=== PATIENT | female | born 1960 ===

== ENCOUNTER 2017-04-24 06:28 | Day surgery (SDC) | payer OTHER ==
[2017-04-24] MEDS ORDERED: ePHEDrine 50 mg/ml Inj ONE (07:24)
[2017-04-24] MEDS ORDERED: Succinylcholine 200 mg/10 ml Inj IV ONE (07:24)
[2017-04-24] MEDS ORDERED: Propofol 10 mg/ml Inj (20 ML) ONE (07:24)
[2017-04-24] MEDS ORDERED: Rocuronium 10 mg/ml (5 ml) ONE (07:24)
[2017-04-24] MEDS ORDERED: Phenylephrine 10 mg/ml Inj ONE (07:24)
[2017-04-24] MEDS ORDERED: Lactated Ringer's 1,000 ML IV ONE (07:45)
[2017-04-24 07:50] VITALS: BMI 25.8
[2017-04-24] MEDS ORDERED: ceFAZolin IV 1 gm in Dextrose 1 GM/50 ML BAG IVPB ONE (07:53)
--- NOTE | 2017-04-24 07:54 | CP.SDSHP ---
Same Day Surgery H & P - History Proposed Procedure: D&C poss hysteroscopy Pre-Op Diagnosis: endometrial hyperplasia - Previous Medical/Surgical History Cardiac: Hypertension Pulmonary: Asthma Endocrine/Metabolic: Diabetes Neuro: Headaches Misc: Anemia Comments: Obese; Hx breast CA; arthritis; depression; edema; migraine Previous Surgical History: mastectomy; gastric bypass; infusion port (right chest); breast implants/removal implants - Allergies Allergies: Allergies aspirin Allergy (Verified 04/20/17 09:47) ANGIOEDEMA - Physical Exam Vital Signs: Vital Signs 04/24/17 04/24/17 07:18 07:34 Temperature 98.6 F Pulse Rate 73 73 Respiratory 18 Rate Blood Pressure 143/86 O2 Sat by Pulse 97 Oximetry Mental Status: Alert & Oriented x3 Neuro: WNL Heart: WNL Lungs: WNL GI: WNL - {Optional Preform as Required} Abdomen: WNL RESIDENTIAL REAL ESTATE APPRAISER: WNL - Impression Impression: Endometrail hyperplasia Pt. Evaluated Today:Candidate for Anesthesia & Procedure: Yes - Date & Time Date: 04/24/17 Time: 07:30 (Informed cosent obtained; trasnslator present) Short Stay Discharge - Short Stay Discharge Admitting Diagnosis/Reason for Visit: R93.8 Disposition: HOME/ ROUTINE Referrals: Tien Carcamo MD [Primary Care Provider] -
[2017-04-24] MEDS ORDERED: Midazolam 2 MG/2 ML VIAL ONE (08:00)
[2017-04-24] MEDS ORDERED: Silver Nitrate Topical - Stick TOP ONE (08:25)
[2017-04-24] MEDS ORDERED: Ferric Subsulfate Sol(60 mL) ONE (08:26)
[2017-04-24] MEDS ORDERED: Silver Nitrate Topical - Stick ONE (08:26)
[2017-04-24] MEDS ORDERED: Oxycodone/Acetaminophen 5/325 mg Tab PO PRN (08:41)
[2017-04-24] MEDS ORDERED: Lactated Ringer's 1,000 ML IV SCH (08:45)
--- NOTE | 2017-04-24 08:45 | PCM.SURG1 ---
Surgeon's Initial Post Op Note - Surgeon's Notes Surgeon: Valentina Park DO Cable Splicer Apprentice: none Type of Anesthesia: General Endo Pre-Operative Diagnosis: nedometrial hyperplasia / Hx breast CA Operative Findings: Stenotic cervix Post-Operative Diagnosis: same Operation Performed: Dilation currettage Specimen/Specimens Removed: endometrial curretting Estimated Blood Loss: EBL {In ML}: 0 Blood Products Given: N/A Drains Used: No Drains Post-Op Condition: Good Date of Surgery/Procedure: 04/24/17 Time of Surgery/Procedure: 08:00
[2017-04-24] MEDS: HYDROmorphone 0.5 mg/0.5 ml ISec IVP PRN ×2 (09:05→09:30)
[2017-04-24 10:37] VITALS: RESP 20
[2017-04-24] MEDS ORDERED: Oxycodone/Acetaminophen 5/325 mg Tab PO ONE (11:35)
[2017-04-24] MEDS ORDERED: Albuterol 0.083% Inhal Sol (2.5 mg/3 mL) UD INH STA (12:00)
[2017-04-24] MEDS ORDERED: Albuterol 0.083% Inhal Sol (2.5 mg/3 mL) UD INH ONE (12:14)
[2017-04-24 12:45] VITALS: BP 120/69; PULSE 89; TEMP 98.5; O2SAT 96
--- NOTE | 2017-05-05 02:33 | OP ---
PROCEDURE DATE: 04/24/2017 SURGEON: Aakash Park DO SPECTROGRAPHER: None. ANESTHESIA: General endotracheal. PREOPERATIVE DIAGNOSES: Endometrial hyperplasia, history of breast cancer. POSTOPERATIVE DIAGNOSES: Endometrial hyperplasia, history of breast cancer. OPERATIVE FINDINGS: Very stenotic cervix. PROCEDURE: Dilation and curettage. SPECIMEN: Endometrial curetting. BLOOD LOSS: None. BLOOD PRODUCTS: None. DRAINS: None. POSTOPERATIVE CONDITION: Good. DESCRIPTION OF PROCEDURE: Janie was brought to the operating room, placed in supine position. After successful induction of general anesthesia, she was placed in the lithotomy position. She was draped and prepped in the usual sterile manner. Catheter was used to drain the bladder of its contents. Uterus was not enlarged. No palpable adnexal masses noted. Weighted speculum was placed in the posterior fornix of the vagina, right-angle retractor in the anterior fornix of the vagina to visualize the cervix. Cervix was grasped at the 12 o'clock position using a single tooth tenaculum. Thereafter, dilatation was attempted using dilators, but impossible to do because of stenotic cervix. Thereafter, using lacrimal dilators, dilation was attempted as well. Small opening was made and the only curette that was able to be inserted was the Kevorkian curette. Attempt was made to perform curetting of the endometrium, but very difficult secondary to stenotic cervix. Specimen was sent to pathology lab. All equipments were removed and accounted for. She tolerated the procedure well and was transferred to the recovery room in stable condition. I spoke to the relative about the difficulty of the procedure and was scheduled to follow up in 2 to 3 weeks, pending pathology report. May possibly refer to Dr. Park, VAULT SERVICE MECHANIC for further consultation. Aakash Park DO
== END 2017-04-24 14:05 | disposition home or self-care (01) ==
LOC: H.OPSURG 06:28
PROVIDERS: ATTEND Obstetrics & Gynecology
DX: R93.8 Abnormal findings on diagnostic imaging of other specified body structures (principal); J45.909 Unspecified asthma, uncomplicated; E78.5 Hyperlipidemia, unspecified; I10 Essential (primary) hypertension; E11.9 Type 2 diabetes mellitus without complications; D64.9 Anemia, unspecified; E66.9 Obesity, unspecified; F32.9 Major depressive disorder, single episode, unspecified; N85.00 Endometrial hyperplasia, unspecified; Z85.3 Personal history of malignant neoplasm of breast; Z98.84 Bariatric surgery status
CPT/HCPCS: 58120; 82948; 88305; 94640; J0330; J0690; J1170; J2001; J2250; J2370; J2405; J2704; J3010; J7030; J7120